=== PATIENT | male | born 1935 | race Caucasian/White ===

== ENCOUNTER 2016-10-25 21:51 | Inpatient (IN) | payer MEDICARE, OTHER ==
--- NOTE | ~2016-10-25 | DS ---
Unit #: [id number] #: [id number] Patient: KIM JORGE [id number] [address] [address] [id number] I MR#: [id number] NAME: KIM JORGE ROOM: 561 Age: 81 Sex: M Admission Date: 10/25/2016 : 1935 Discharge Date: 10/28/2016 Attending Physician: Farnaz Steinberg M.D. DISCHARGE SUMMARY PRIMARY CARE PROVIDER Unknown. PRINCIPAL DIAGNOSES 1. Acute on chronic kidney disease, stage 4 with discharge creatinine of 2.5. 2. Benign prostatic hypertrophy with urinary retention. 3. Hypokalemia. 4. Systemic inflammatory response syndrome, now resolved. 5. Dementia, likely vascular. 6. Hypertension. 7. Diabetes mellitus type 2, controlled. 8. Anemia of chronic kidney disease. 9. Acute delirium, resolved. 10. Metabolic acidosis secondary to chronic kidney disease. 11. Gout. 12. Hyperlipidemia. 13. History of renal cell carcinoma. CONSULTANTS 1. Dr. Potts of Nephrology. 2. Dr. Peterson of Urology. PROCEDURES 1. Chest x-ray on 10/25/2016 with prominent and tortuous thoracic aorta. 2. CT of the head without contrast on 10/25/2016 with no acute findings, generalized cerebral and cerebellar cortical atrophy and mild chronic ischemic changes in the deep white matter noted. 3. Chest x-ray on 10/26/2016 again without any acute findings. CLINICAL HISTORY AND HOSPITAL COURSE Mr. Jorge is an 81-year-old male, who presents to the emergency department with increasing confusion. Please refer to H and P for further details. Upon presentation, creatinine was elevated at 4.2. The patient was seen in the ER on the and found to have a creatinine of 4.6, he also had urinary retention. Gonzalez catheter was placed and he was sent back to . He presents back with increasing confusion, at which time, creatinine was 4.2, and Gonzalez catheter remained in place. The patient was subsequently admitted. Nephrology was consulted. The patient was placed on IV fluids and creatinine has now decreased to 2.5, which is very near to the patient's baseline. He had an associated metabolic acidosis and he has been placed Unit #: [id number] #: [id number] Patient: KIM JORGE on sodium bicarbonate tablets. His chronic renal dysfunction secondary to underlying hypertension in combination with his bladder outlet obstruction which has been treated with a Gonzalez catheter. He will continue on medications as noted below and will follow up with Dr. Potts as an outpatient. Dr. Peterson was consulted given urinary retention. The patient will continue on his Flomax in addition to Proscar and will need chronic indwelling Gonzalez catheter which has been discussed with the patient. This led to be changed monthly. The patient's other chronic condition remained stable. He did have some mild hypokalemia and will continue on his home potassium. I tried to contact patient's family and/or friends due to his dementia, but I am unable to do so. Plan is to discharge back to with physical therapy via home health when family can be reached. DISCHARGE CONDITION Stable. DISCHARGE STATUS Return to previous living situation with home health. DISCHARGE MEDICATIONS Sodium bicarbonate 650 mg b.i.d., Flomax 0.4 mg b.i.d., Coreg 12.5 mg b.i.d., Norvasc 10 mg daily, bisacodyl 5 mg daily p.r.n. for constipation, Lipitor 10 mg at bedtime, Catapres 0.1 mg b.i.d., hydralazine increased to 75 mg p.o. t.i.d., allopurinol 100 mg daily, Proscar 5 mg daily, potassium chloride 20 mEq p.o. b.i.d. DISCHARGE INSTRUCTIONS The patient was instructed to maintain Gonzalez catheter at all time, that will need to be changed monthly. He can increase activity as tolerated occupational therapy. He will continue with a heart-healthy diet. Monitoring his carbohydrate intake. FOLLOWUP The patient will follow up with Dr. Peterson in 1 month and he will follow up with Dr. Potts in 4 to 6 weeks. He will likely benefit from outpatient Procrit at some point, given his degree of renal dysfunction. Time spent discharge 34 minutes. Dictated by... Farnaz Steinberg M.D. GUERA/tito TD: 10/29/2016 01:52 JOB #: [id number] Unit #: [id number] #: [id number] Patient: KIM JORGE DISCHARGE SUMMARY Page 1 of 1 X Farnaz Steinberg MD X DISCHARGE SUMMARY
--- NOTE | ~2016-10-25 | CR72 ---
[facility] A Service of [facility] & [facility] RADIOLOGY TEXT RESULTS PATIENT: KIM OLIVEIRA LOCATION: CEDOF [address]3941-33 : 35 UNIT #: [id number] AGE: [address]: Benjamin Christina MD SEX: M ORDER DR: [id number] [facility] [address] [facility]. [place], [place] [address] [id number] I MR#: [id number] Acc #: [id number] NAME: KIM OLIVEIRA : 1935 SEX: M STUDY DATE/TIME: 10/25/2016 20:26 UNIT: CEDOF ROOM: 51696 STUDY DESCRIPTION: CR Chest Single View Portable Attending Physician: Benjamin Christina M.D. Ordering Physician: Sheryl Leon M.D. MEDICAL IMAGING REPORT This report is preliminary unless electronic signature is present EXAM Portable chest HISTORY Shortness of air, cough and congestion for 4 days. FINDINGS The cardiac size and pulmonary vascularity are normal. Mildly prominent and tortuous descending thoracic aorta. No airspace infiltrates or effusions. Calcified left hilar nodes and calcified granuloma in the left midlung. Remainder of the chest is negative. IMPRESSION No acute findings. No active disease. Mildly prominent and tortuous thoracic aorta similar to 04/25/2016. Dictated by... Randolph Andrews M.D. THIS IS AN ELECTRONICALLY VERIFIED REPORT Randolph Andrews M.D. at 10/27/2016 1:59 PM LAYA/carmen TD: 10/26/2016 10:36 JOB #: [id number] MEDICAL IMAGING REPORT Page 1 of 1 COPY
--- NOTE | ~2016-10-25 | CO ---
Unit #: [id number] #: [id number] Patient: KIM JORGE [id number] [place], [place] [address] [id number] I MR#: [id number] NAME: KIM JORGE ROOM: 561 Age: 81 Sex: M Admission Date: 10/25/2016 : 1935 Attending Physician: Farnaz Steinberg M.D. Primary Care Physician: No Primary Care Physician CONSULTATION REPORT REASON FOR CONSULTATION Altered mental status. HISTORY OF PRESENT ILLNESS Mr. Kim Jorge is an 81-year-old male admitted on 10/25/2016 with a change in mental status and disorientation. Patient was seen on 10/28/2016 in room 561 at [facility]. The patient reported that he is feeling better. Patient had a UTI at that time and his potassium was 2.6, BUN 88, creatinine 4.2 at the time of admission. The patient reported that he is feeling much better, alert, and oriented to time, place, and person. The patient reported that he has a good support system. Denied any suicidal or homicidal ideation. Denied any psychotic symptoms. PAST PSYCHIATRIC HISTORY Unremarkable for any history of any psychiatric illness. MEDICAL HISTORY Medical history is remarkable for history of chronic kidney disease, hypertension, diabetes, history of dyslipidemia, history of dyslipidemia, history of gout, benign prostatic hypertrophy, urinary retention, Gonzalez catheter placed on 10/22/2016, history of renal cell carcinoma with a previous right nephrectomy in 1992, history of rhabdomyolysis in past. MEDICATION HISTORY Patient is on allopurinol 100 mg daily; Norvasc 10 mg daily; atorvastatin 10 mg daily; bisacodyl 5 mg daily; Coreg 12.5 mg b.i.d.; clonidine 0.5 mg b.i.d.; hydralazine 10 mg 3 times a day; potassium chloride 20 mEq b.i.d.; Flomax 0.4 mg b.i.d. and Toradol 50 mg q.6 hours. REVIEW OF SYSTEMS Complete review of system is unremarkable. MENTAL STATUS EXAMINATION General appearance: Patient dressed casually, lying comfortably in bed. Attention span and concentration fair. Speech regular rate, coherent. Oriented in time, place and person. Mood and affect were sad, dysphoric, anxious. Patient was somewhat upset about not having a bowel movement. Thought process coherent and goal directed. Thought content - the patient denied any thoughts of harming self or others or any psychotic symptoms. Recent and remote memory fair. Language - able to name object, repeat phrases. Fund of knowledge fair. Insight and judgment fair to slightly impaired. Unit #: [id number] #: [id number] Patient: KIM JORGE DIAGNOSIS PSYCHIATRIC: Delirium, resolved - F05. SECONDARY DIAGNOSIS: Deferred. MEDICAL DIAGNOSIS: Please refer to H and P. STRESSORS: Psychosocial stressors. ASSESSMENT/PLAN 1. Supportive psychotherapy and psychoeducation provided to patient. 2. Educated about benefits and side effects of medication, and course and prognosis of illness. 3. Advised to continue with treatment. We will continue to monitor if needed, to consider medication. Please feel free to call if any questions. Telephone number [phone]. Dictated by... Reji Randall M.D. ANANDA/rakesh TD: 10/30/2016 05:52 JOB #: [id number] CONSULTATION REPORT Page 1 of 1 X Reji Randall MD X CONSULTATION REPORT
--- NOTE | ~2016-10-25 | CT71 ---
[facility] A Service of [facility] & [facility] RADIOLOGY TEXT RESULTS PATIENT: KIM OLIVEIRA LOCATION: CEDOF [address]-96 : 35 UNIT #: [id number] AGE: [address]: Benjamin Christina MD SEX: M ORDER DR: [id number] [facility] [address] [facility]. [place], [place] [address] [id number] I MR#: [id number] Acc #: [id number] NAME: KIM OLIVEIRA : 1935 SEX: M STUDY DATE/TIME: 10/25/2016 21:13 UNIT: CEDOF ROOM: 39063 STUDY DESCRIPTION: CT Head Wo Contrast Attending Physician: Benjamin Christina M.D. Ordering Physician: Sheryl Leon M.D. Primary Care Physician: No Primary Care Physician MEDICAL IMAGING REPORT This report is preliminary unless electronic signature is present EXAM CT brain without contrast HISTORY Disoriented. Confusion for [address] exam was performed with one or more of the following radiation dose reduction techniques: automatic exposure control, adjustment of mA and/or kV according to patient size, and iterative reconstruction. FINDINGS CT brain without contrast demonstrates no intracranial hemorrhage, mass or edema. No midline shift or ventricular dilatation or extraaxial fluid collection. Mild generalized cerebral and cerebellar cortical atrophy. IMPRESSION 1. No acute findings are identified. 2. Mild generalized cerebral and cerebellar cortical atrophy and mild chronic ischemic changes in the deep white matter bilaterally. Dictated by... Randolph Andrews M.D. THIS IS AN ELECTRONICALLY VERIFIED REPORT Randolph Andrews M.D. at 10/26/2016 1:32 PM DFL/sebastian TD: 10/26/2016 11:28 JOB #: [id number] MEDICAL IMAGING REPORT [facility] A Service of [facility] & [facility] RADIOLOGY TEXT RESULTS PATIENT: KIM OLIVEIRA LOCATION: CEDOF [address]-67 : 35 UNIT #: [id number] AGE: [address]: Benjamin Christina MD SEX: M ORDER DR: Page 1 of 1 COPY
--- NOTE | ~2016-10-25 | CO ---
Unit #: [id number] #: [id number] Patient: KIM OLIVEIRA [id number] [address] [address] [id number] I MR#: [id number] NAME: KIM OLIVEIRA ROOM: 561 Age: 81 Sex: M Admission Date: 10/25/2016 : 1935 Attending Physician: Farnaz Steinberg M.D. Primary Care Physician: Primary Care Physician No Consultation Date: 10/26/2016 CONSULTATION REPORT INDICATION FOR CONSULT Traumatic Gonzalez removal, BPH, hematuria. HISTORY OF PRESENT ILLNESS This is an 81-year-old gentleman who is in a mcc, who comes in after pulling out his Gonzalez catheter with mental status changes, confusion, possible urinary tract infection. Urology was consulted secondary to his traumatic Gonzalez catheter removal. The patient has quite a bit of delirium, unable to get any significant review of systems as far as I am aware he has not seen a urologist in our practice. I was able to get an 18-Peruvian Gonzalez catheter back into the patient's urethra and into his bladder and clear urine was obtained. REVIEW OF SYSTEMS The patient's review of systems is unobtainable. PAST MEDICAL HISTORY Acute on chronic renal insufficiency. The patient's creatinine is 3.3. BPH. MEDICATIONS Please see MAR. PHYSICAL EXAMINATION GENERAL: The patient is awake, but confused, in no distress. HEENT: Normocephalic, atraumatic. HEART: Regular. LUNGS: Clear. ABDOMEN: Soft, nondistended. There is no CVA tenderness. : An 18-Peruvian Gonzalez catheter was easily placed in the patient's urethra and into his bladder without any difficulty. DIAGNOSTIC STUDIES LABORATORY RESULTS: The patient's creatinine is 3.3. His white count is 12.9, his hemoglobin 11.5. IMPRESSION Traumatic catheter removal, questionable urinary tract infection. PLAN We will keep Gonzalez in place for now. Continue antibiotic. We will wait for his urine culture return. Unit #: [id number] #: [id number] Patient: KIM OLIVEIRA Dictated by.Ulices Delaney/tito TD: 10/28/2016 12:48 JOB #: [id number] CONSULTATION REPORT Page 1 of 1 X Jules Rolle MD CONSULTATION REPORT
--- NOTE | ~2016-10-25 | EKG ---
PATIENT: KIM OLIVEIRA UNIT #: [id number] Ventricular Rate: 88 BPM Atrial Rate: 93 BPM QRS Duration: 82 ms Q-T Interval: 414 ms QTC Calculation(Bezet): 500 ms Calculated R [place]: -63 degrees Calculated T [place]: 17 degrees Diagnosis Line: Normal sinus rhythm Premature atrial complexes Diagnosis Line: Left axis deviation Diagnosis Line: Inferior infarct , age undetermined Diagnosis Line: Abnormal ECG Diagnosis Line: No previous ECGs available Diagnosis Line: Confirmed by LIZETTE CASTRO MD ([id number]) on 10/29/2016 Diagnosis Line: 10:31:31 PM INTERPRETING MD: MATTHEW LOMBARDI
--- NOTE | ~2016-10-25 | CR63 ---
[facility] A Service of [facility] & [facility] RADIOLOGY TEXT RESULTS PATIENT: KIM OLIVEIRA LOCATION: CEDOF [address]-90 : 35 UNIT #: [id number] AGE: [address]: Benjamin Christina MD SEX: M ORDER DR: [id number] [facility] [address] [facility]. [place], [place] [address] [id number] I MR#: [id number] #: [id number] NAME: KIM OLIVEIRA : 1935 SEX: M STUDY DATE/TIME: 10/26/2016 10:52 UNIT: CEDOF ROOM: 21671 STUDY DESCRIPTION: CR Chest 2 View Attending Physician: Benjamin Christina M.D. Ordering Physician: Roberto Potts M.D. Primary Care Physician: No Primary Care Physician MEDICAL IMAGING REPORT This report is preliminary unless electronic signature is present EXAM 2-view chest INDICATIONS Fever, sepsis, and urinary tract infection for 2 days. FINDINGS PA and lateral views of the chest compared to 10/25/2016. Heart is mildly enlarged. The thoracic aorta is tortuous. There is a benign granuloma in the left mid lung. No new pulmonary opacities. No pleural effusion. IMPRESSION 1. No acute cardiopulmonary findings. 2. Mild cardiomegaly and tortuous thoracic aorta are unchanged. Dictated by... Hamlet Van M.D. THIS IS AN ELECTRONICALLY VERIFIED REPORT Hamlet Van M.D. at 10/27/2016 10:43 AM RPJules/arcadio TD: 10/27/2016 02:31 JOB #: [id number] MEDICAL IMAGING REPORT Page 1 of 1 COPY
--- NOTE | ~2016-10-25 | CO ---
Unit #: [id number] #: [id number] Patient: KIM OLIVEIRA [id number] [address] [address] [id number] I MR#: [id number] NAME: KIM OLIVEIAR ROOM: 561 Age: 81 Sex: M Admission Date: 10/25/2016 : 1935 Attending Physician: Farnaz Steinberg M.D. Primary Care Physician: Ketty Primary Care Physician Consultation Date: 10/28/2016 CONSULTATION REPORT REASON FOR CONSULTATION Elevated renal indices in context of urinary retention. 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 He was discharged with a Gonzalez catheter, which he pulled out back where he lives in the [place]. He was readmitted again with a creatinine of 4.2. Urinary retention is suspected. He is once again improved with Gonzalez catheter in place. He denies any voiding difficulty, but admits to occasional urge incontinence and takes Flomax. He sees Dr. Paz for his chronic renal insufficiency, which is thought likely to progress to dialysis. He has a solitary left kidney, having had nephrectomy for cancer in 1992 on the right. He denies any history of gross hematuria, urinary infection or stone disease. PAST MEDICAL HISTORY 1. BPH. 2. Urinary retention. 3. Hypertension. 4. Chronic kidney disease. 5. Gout. 6. Diabetes. 7. Dyslipidemia. 8. History of rhabdomyolysis in the past. PAST SURGICAL HISTORY 1. Right nephrectomy. 2. Bilateral cataracts. 3. Tonsillectomy. 4. Adenoidectomy. 5. Benign tumor right arm. 6. Right total knee arthroplasty. SOCIAL HISTORY Nonsmoker. Canning Machine Operator. FAMILY HISTORY Unit #: [id number] #: [id number] Patient: KIM OLIVEIRA Negative for prostate cancer according to the patient. ALLERGIES Latex. ADMISSION MEDICATIONS 1. Allopurinol. 2. Norvasc. 3. Atorvastatin. 4. Bisacodyl. 5. Coreg. 6. Clonidine. 7. Hydralazine. 8. Potassium. 9. Flomax. 10. Toradol. REVIEW OF SYSTEMS Not reliable. PHYSICAL EXAMINATION GENERAL: The patient is pleasant and alert. Responsive but not fully oriented. VITALS: Afebrile with stable vital signs. Temperature 98.2, pulse 77, blood pressure 150/80, respiratory rate 20. Height is 5'10" and weight is 156 pounds. HEENT: Unremarkable. ABDOMEN: Normal habitus. Soft and nontender. No anterior scars. Thallus normal circumcised. Gonzalez catheter in place, unfortunately on some traction, not well secured. Tests and epididymis normal descended. DIGITAL: Normal anus and sphincter tone. No stool in the vault. Prostate feels moderately enlarged, at least 60 grams and with minimal benign feeling irregularities. No fluctuance, nodularity or tenderness. DIAGNOSTIC STUDIES IMAGING: X-rays no upper tract images. LABORATORY: BUN 50, creatinine 2.5, which may be baseline. Urinalysis 100 to 200 red cells, 2 to 5 white cells, no nitrates, no bacteria. ASSESSMENT The patient has large volume BPH and takes Flomax chronically. Full assessment of it is difficult, but very likely indicates recurrent acute renal failure due to urinary retention from the BPH. The patient is probably best managed with a chronic indwelling Gonzalez catheter for the foreseeable future, but as this may be problematic would optimize him for possible PUR should this need to be attempted. It also would rule out prostate cancer, although no evidence of this on exam. PLAN Will check PSA, start him on finasteride and keep Gonzalez secure off traction at all times. Will await disposition for social service before committing to followup. Thank you, Benjamin, for the consultation. Unit #: [id number] #: [id number] Patient: KIM OLIVEIRA Dictated by... Ezequiel Peterson M.D. YURIDIA/alyce TD: 10/28/2016 10:46 JOB #: [id number] CONSULTATION REPORT Page 1 of 1 X Ezequiel Peterson MD X CONSULTATION REPORT
--- NOTE | ~2016-10-25 | HP ---
Unit #: [id number] #: [id number] Patient: KIM OLIVEIRA [id number] [address] [place], [place] [address] [id number] I MR#: [id number] NAME: KIM OLIVEIRA ROOM: 18725 Age: 81 Sex: M Admission Date: 10/25/2016 : 1935 Attending Physician: Benjamin Christina M.D. Primary Care Physician: No Primary Care Physician HISTORY AND PHYSICAL CHIEF COMPLAINT Change in mental status, disorientation. DISCUSSION This is an 81-year-old gentleman who has a history of chronic kidney disease, hypertension, diabetes in the past - on diet now, dyslipidemia, history of gout, history of renal cell carcinoma with previous right nephrectomy, benign prostatic hypertrophy, urinary retention. He lives at (1) Home where he resides. He actually was brought here to the emergency room 2 days ago, 10/22. At that time his workup showed BUN 119. Creatinine was 5.6. He was found to have urinary retention, and he was placed on a Gonzalez catheter and eventually he was sent back to (1) Home. He was brought today to the ER with symptoms of change in mental status, confusion, possible UTI. The patient has been disoriented. On workup he was found to have potassium of 2.6, BUN 88, creatinine 4.2, which is improved from last time. Possibly he has urinary retention, which is improving, but symptoms worse with increased lactic acid level of 2.4. The patient is being admitted for possible sepsis, UTI, acute kidney injury and hypokalemia. The patient is at this time a very poor historian. Most of information is obtained through reviewing old chart and talking with his friend at the bedside who lives with him at (1) Home. PAST MEDICAL HISTORY 1. History of chronic kidney disease. 2. Hypertension. 3. Diabetes, on diet. 4. History of dyslipidemia. 5. History of gout. 6. Benign prostatic hypertrophy. 7. Urinary retention. Apparently he was placed on Gonzalez catheter on 10/22/16. 8. History of renal cell carcinoma with previous right nephrectomy in 1992. 9. History of rhabdomyolysis in the past. PAST SURGICAL HISTORY 1. Right nephrectomy in 1992. 2. History of cataract surgery bilaterally. 3. History of excision of benign tumor from right arm. 4. History of tonsillectomy. 5. Adenoidectomy. 6. History of total knee arthroplasty. Unit #: [id number] #: [id number] Patient: KIM OLIVEIRA SOCIAL HISTORY He does not smoke. Does not drink alcohol. Lives at (1) Home. FAMILY HISTORY History of hypertension, diabetes, laryngeal cancer in the family. ALLERGIES Latex. CURRENT MEDICATIONS 1. Allopurinol 100 mg daily. 2. Norvasc 10 mg daily. 3. Atorvastatin 10 mg daily. 4. Bisacodyl 5 mg daily. 5. Coreg 12.5 b.i.d. 6. Clonidine 0.1 mg b.i.d. 7. Hydralazine 10 mg t.i.d. 8. Potassium chloride 20 mEq b.i.d. 9. Flomax 0.4 mg b.i.d. 10. Toradol 50 mg q.6 hours p.r.n. REVIEW OF SYSTEMS All review of systems negative except as in history of present illness. PHYSICAL EXAMINATION GENERAL: Elderly man lying in bed comfortably. He has chills and shivering. He is alert, awake, oriented to time only and situation; otherwise, he is disoriented. CURRENT VITALS: Temperature is 98.2, heart rate 108, respirations 16, blood pressure 136/103, oxygen 100% on room air. HEENT: Head is atraumatic. Pupils are equal and reactive to light and accommodation. Extraocular muscles are intact. Oropharynx is normal. NECK: Neck is supple. No JVD. No carotid bruits. LUNGS: Lungs are clear to auscultation. HEART: S1, S2. Regular rate and rhythm. No murmur. No gallop. ABDOMEN: Abdomen is soft, nontender, nondistended. Bowel sounds are positive. EXTREMITIES: Inspection is normal. No cyanosis. No clubbing. No edema. NEUROLOGIC: Unable to do neuro exam at this time secondary to patient cooperation. DIAGNOSTIC STUDIES LABORATORY WORKUP: His blood gases, ABG, shows pH of 7.67, CO2 18, O2 101. White count is 14, hemoglobin 11, hematocrit 35, platelets 224. His INR is 1. Lactic acid level 2.4. Sodium 140, potassium 2.6, chloride 103, glucose 170, BUN 88, creatinine 4.2. LFTs within normal limits. Magnesium level is 2. Troponin less than 0.05, less than 0.05. UA shows yellow appearance, nitrite negative, leukocyte esterase trace. ASSESSMENT AND PLAN 1. Acute on chronic kidney injury. Place on IV fluids. 2. Hypokalemia. Replace. 3. Possible sepsis. Start the patient on IV Rocephin. Monitor. Flu is pending. 4. Urinary retention status post recent Gonzalez catheter. Patient was brought here on 10/22/16. Found to have urinary retention. Gonzalez was placed. At that time BUN was 19, creatinine 5.6, which is basically improving. Unit #: [id number] #: [id number] Patient: KIM OLIVEIRA 5. Hypertension. 6. Diabetes. Currently he is on diet. 7. History of dyslipidemia. 8. Gout. 9. Benign prostatic hypertrophy. 10. History of renal cancer with previous right nephrectomy in 1992. 11. DVT prophylaxis. Will place the patient on SCDs. Dictated by Ulices Bush/vibha TD: 10/26/2016 08:26 JOB #: [id number] HISTORY AND PHYSICAL Page 1 of 1 X X HISTORY AND PHYSICAL
--- NOTE | ~2016-10-25 | CO ---
Unit #: [id number] #: [id number] Patient: KIM OLIVEIRA [id number] [address] [place], [place] [address] [id number] MR#: [id number] NAME: KIM OLIVEIRA ROOM: 561 Age: 81 Sex: M Admission Date: 10/25/2016 : 1935 Attending Physician: Farnaz Steinberg M.D. Consultation Date: 10/26/2016 CONSULTATION REPORT REASON FOR CONSULTATION Acute on chronic renal failure. Thank you very much for this consultation. HISTORY OF PRESENT ILLNESS The patient is an 81-year-old white male with history of CKD stage 3 to 4, who follows with my partner, Dr. Paz. He was just seen by Dr. Paz in the office last week and his creatinine was 3.7, his baseline has been in the mid upper 3s. He has a history of bladder outlet obstruction and has a Gonzalez catheter in place; however, he pulled that out in the emergency room overnight. His creatinine on admission was 4.2, after he presented to the ER with confusion and altered mental status and he is unable to provide any reliable history. He is hypertensive with low-grade fever in the emergency room. His white count was noted to be elevated at 14.4. His urinalysis showed positive blood, but no significant pyuria. He otherwise is stable; however, again he is confused and able to cooperate with exam or history taking. His Gonzalez catheter appeared to have been kinked prior to him pulling it out as he did have significant amount of urine retained in the bladder. After unkinking the Gonzalez catheter bag, it did drain clear yellow urine; however, at that point, the patient pulled out the catheter. PAST MEDICAL HISTORY Significant for chronic kidney disease, hypertension, diabetes mellitus, gout, hyperlipidemia, bladder outlet obstruction. HOME MEDICATIONS Zyloprim 100 mg daily, Norvasc 10 mg daily, Atorvastatin 10 mg daily, bisacodyl 5 mg daily, carvedilol 12.5 mg b.i.d., Catapres 0.1 mg b.i.d., Apresoline 10 mg t.i.d., potassium chloride 20 mEq b.i.d., Flomax 0.4 mg b.i.d., tramadol 50 mg every 6 hours as needed for pain. ALLERGIES Latex. FAMILY HISTORY Noncontributory. SOCIAL HISTORY Apparently, he lives by himself. PHYSICAL EXAMINATION VITAL SIGNS: Blood pressure 160s to 190s over 90s to 100s, heart rate 60s Unit #: [id number] #: [id number] Patient: TEE,KIM to 90s, respirations 20 to 23, T-max 100.6 Fahrenheit. GENERAL: He is awake, but confused. HEENT: Head is normocephalic and atraumatic. EENT; pupils are equal, round, to light. Oropharynx is clear. NECK: Supple. No JVD. LUNGS: Clear to auscultation bilaterally. No wheezes, rhonchi, or crackles. HEART: Regular rate and rhythm. No murmurs, gallops, or rubs. ABDOMEN: Soft with positive bowel sounds, nontender. EXTREMITIES: Lower extremities, no edema. LABORATORY DATA White count 14.4, hemoglobin 11.9, and platelets 224. Sodium 142, potassium 2.7, chloride 110, bicarb 20, BUN 75, creatinine 3.3, glucose 129, calcium 9.2, magnesium 2.0. Urinalysis showed trace leukocyte esterase with positive blood, but no pyuria. IMPRESSION 1. Acute kidney injury due to prerenal azotemia and obstructive uropathy. Creatinine is at baseline this morning. 2. Chronic kidney disease, stage 3 to 4 with baseline creatinine in the mid 3s. 3. Bladder outlet obstruction, status post recent Gonzalez placement, this was pulled out by the patient in the emergency room and has not been replaced. He did have a significant amount of urine retained in his bladder when he presented as the Gonzalez had been kinked initially. 4. Hypokalemia. 5. Metabolic acidosis. 6. Hypertension. 7. Diabetes. 8. Anemia of chronic kidney disease. 9. Altered mental status. PLAN Continue IV fluids. Titrate blood pressure medications. Replace Gonzalez after seen by Urology if needed. Continue antibiotics per primary. We will follow cultures, replace electrolytes and follow the patient's clinical course closely. Dictated by... Roberto Potts M.D. DANIELLE/tito TD: 10/28/2016 05:23 JOB #: [id number] CONSULTATION REPORT Page 1 of 1 X Roberto Potts MD CONSULTATION REPORT
[2016-10-25 20:23] LABS: ARTERIAL BLD GAS O2 SATURATION 97.4 % (90.0-100.0); ARTERIAL BLOOD GAS CARBOXY HB 0.5 %sat (0.0-9.0); ARTERIAL BLOOD GAS HCO3 21.8 mmol/L; ARTERIAL BLOOD GAS MET HB 0.9 %sat (0.0-2.0)
[2016-10-25 20:25] LABS: ARTERIAL BLOOD GAS ALLEN TEST NORMAL; ARTERIAL BLOOD GAS ART SITE RIGHT RADIAL; ARTERIAL BLOOD GAS PCO2 18.8 mmHg (35.0-45.0); ARTERIAL BLOOD GAS pH 7.674 (7.350-7.450); ARTERIAL DRAW? YES
[2016-10-25 20:49] LABS: BASOPHIL# 0.2 X10e3 (0-0.3); BASOPHIL% 1.2 % (0-2.5); EOSINOPHIL# 0.3 X10e3 (0-0.7); EOSINOPHIL% 1.9 % (0.0-7.0); HEMATOCRIT 35.2 % (38.0-50.0); HEMOGLOBIN 11.9 gm/dL (13.0-16.0); LYMPHOCYTE# 3.5 X10e3 (1.0-3.5); LYMPHOCYTE% 24.3 % (17.0-45.0); MEAN CELL VOLUME 92.8 FL (83-96); MEAN CORPUSCULAR HEMOGLOBIN 31.3 PG (28-34); MEAN CORPUSCULAR HGB CONC 33.7 g/dL (30-36); MEAN PLATELET VOLUME 7.2 FL (6.5-11.5); MONOCYTE# 1.3 X10e3 (0-1.0); MONOCYTE% 9.3 % (3.0-12.0); NEUTROPHIL# 9.1 X10e3 (1.5-7.1); NEUTROPHIL% 63.3 % (40-75); PLATELET COUNT 224 X10e3 (140-420); RED CELL DISTRIBUTION WIDTH 13.6 % (11.0-15.5); WHITE BLOOD COUNT 14.4 X10e3 (4.0-10.5)
[2016-10-25 20:50] LABS: DIFF IND NO
[2016-10-25 21:10] LABS: PARTIAL THROMBOPLASTIN TIME 25.1 SECONDS (23.5-31.3); PROTHROMBIN TIME (PATIENT) 10.8 SECONDS (9.6-11.5)
[2016-10-25 21:14] LABS: ALBUMIN SERUM 4.2 g/dL (3.5-5.0); BILIRUBIN, DIRECT 0.2 mg/dL (0.0-0.2); BILIRUBIN,INDIRECT 0.9 mg/dL (0.0-0.9); BILIRUBIN,TOTAL 1.1 mg/dL (0.2-2.0); BUN/CREATININE RATIO 20.95; CALCIUM SERUM 10.3 mg/dL (8.4-10.2); CREATININE SERUM 4.2 mg/dL (0.6-1.4); GLOM FILT RATE Estimated 12.4 mL/min (>60); PROTEIN TOTAL SERUM 7.8 g/dL (6.0-8.3)
[2016-10-25 21:15] LABS: POTASSIUM 2.6 mmol/L (3.5-5.1)
[2016-10-25 22:19] LABS: POC - CKMB 2.1 ng/mL (0.0-7.9); POC - TROPONIN <0.05 ng/mL (<=0.05)
[2016-10-25 22:20] LABS: POC - CKMB 1.9 ng/mL (0.0-7.9); POC - TROPONIN <0.05 ng/mL (<=0.05)
[2016-10-25 22:32] LABS: URINE SOURCE CLEAN CATCH
[2016-10-25 22:38] LABS: URINE APPEARANCE CLEAR; URINE BILIRUBIN NEG (NEG); URINE BLOOD 2+ (NEG); URINE COLOR YELLOW; URINE GLUCOSE NEG (NEG); URINE KETONE NEG (NEG); URINE LEUKOCYTE ESTERASE TRACE (NEG); URINE NITRATE NEG (NEG); URINE PROTEIN 3+ (NEG); URINE SPECIFIC GRAVITY 1.015 (1.003-1.035); URINE UROBILINOGEN 0.2 MG/DL (NEG)
[2016-10-25 22:40] LABS: CULTURE INDICATED? NO; U HYALINE CASTS AUWI 0-2 /[LPF]; URBCS1 AUWI 100-200 /[HPF] (0-2); URINE BACTERIA AUWI NEG (NEGATIVE); URINE SQUAMOUS EPITHELIAL CELL NONE SEEN /[HPF]
[2016-10-25] MEDS ORDERED: NORVASC10 MG PO (23:07)
[2016-10-25] MEDS ORDERED: ZYLOPRIM100 MG PO (23:07)
[2016-10-25] MEDS ORDERED: ATORVASTATIN CA10 MG PO (23:08)
[2016-10-25] MEDS ORDERED: BISACODYL EC5 M1 PO (23:08)
[2016-10-25] MEDS ORDERED: CARVEDILOL12.5 MG PO (23:08)
[2016-10-25] MEDS ORDERED: APRESOLINE10 M1 PO (23:09)
[2016-10-25] MEDS ORDERED: CATAPRES0.1 MG PO (23:09)
[2016-10-25] MEDS ORDERED: POTASSIUM20 MEQ/PKT PO (23:10)
[2016-10-25] MEDS ORDERED: TRAMADOL HCL50 M1 PO (23:10)
[2016-10-25] MEDS ORDERED: FLOMAX0.4 M1 PO (23:10)
[2016-10-25 23:57] LABS: ACETAMINOPHEN <10 ug/mL; ALCOHOL BLOOD <5 mg/dL ([0,]); SALICYLATE <4.0 mg/dL
[2016-10-26 04:07] LABS: INFLUENZA A NEG (NEG); INFLUENZA B NEG (NEG)
[2016-10-26 06:52] LABS: ARTERIAL BLD GAS O2 SATURATION 94.4 % (90.0-100.0); ARTERIAL BLOOD GAS CARBOXY HB 0.9 %sat (0.0-9.0); ARTERIAL BLOOD GAS HCO3 41.6 mmol/L; ARTERIAL BLOOD GAS MET HB 1.3 %sat (0.0-2.0); ARTERIAL BLOOD GAS PO2 81.1 mmHg (80.0-100); ARTERIAL BLOOD GAS pH 7.467 (7.350-7.450)
[2016-10-26 06:54] LABS: ARTERIAL BLOOD GAS ALLEN TEST NORMAL; ARTERIAL BLOOD GAS ART SITE RIGHT RADIAL; ARTERIAL BLOOD GAS DELIVERY VENTURI MASK; ARTERIAL BLOOD GAS PCO2 57.5 mmHg (35.0-45.0); ARTERIAL DRAW? YES
[2016-10-26 08:21] LABS: BUN/CREATININE RATIO 22.72; CALCIUM SERUM 9.2 mg/dL (8.4-10.2); CREATININE SERUM 3.3 mg/dL (0.6-1.4); GLOM FILT RATE Estimated 16.6 mL/min (>60)
[2016-10-26 08:33] LABS: POTASSIUM 2.7 mmol/L (3.5-5.1)
[2016-10-26 10:22] LABS: BASOPHIL# 0.2 X10e3 (0-0.3); BASOPHIL% 1.2 % (0-2.5); EOSINOPHIL# 0.1 X10e3 (0-0.7); EOSINOPHIL% 0.8 % (0.0-7.0); HEMATOCRIT 34.3 % (38.0-50.0); HEMOGLOBIN 11.5 gm/dL (13.0-16.0); LYMPHOCYTE# 2.8 X10e3 (1.0-3.5); LYMPHOCYTE% 21.5 % (17.0-45.0); MEAN CELL VOLUME 92.8 FL (83-96); MEAN CORPUSCULAR HEMOGLOBIN 31.2 PG (28-34); MEAN CORPUSCULAR HGB CONC 33.7 g/dL (30-36); MEAN PLATELET VOLUME 6.9 FL (6.5-11.5); MONOCYTE% 7.8 % (3.0-12.0); NEUTROPHIL# 8.9 X10e3 (1.5-7.1); NEUTROPHIL% 68.7 % (40-75); PLATELET COUNT 219 X10e3 (140-420); RED CELL DISTRIBUTION WIDTH 13.6 % (11.0-15.5); WHITE BLOOD COUNT 12.9 X10e3 (4.0-10.5)
[2016-10-26 10:24] LABS: DIFF IND NO
[2016-10-26 22:31] LABS: AMPHETAMINE NEG (NEG); BARBITURATES NEG (NEG); BENZODIAZEPINES NEG (NEG); COCAINE NEG (NEG); MARIJUANA NEG (NEG); OPIATES NEG (NEG); TRICYCLIC ANTIDEPRESSANTS NEG (NEG); U METHADONE NEG (NEG)
[2016-10-27 08:43] LABS: BASOPHIL# 0.1 X10e3 (0-0.3); BASOPHIL% 1.3 % (0-2.5); EOSINOPHIL# 0.7 X10e3 (0-0.7); HEMATOCRIT 30.1 % (38.0-50.0); HEMOGLOBIN 10.1 gm/dL (13.0-16.0); LYMPHOCYTE# 3.3 X10e3 (1.0-3.5); LYMPHOCYTE% 30.3 % (17.0-45.0); MEAN CELL VOLUME 94.8 FL (83-96); MEAN CORPUSCULAR HEMOGLOBIN 31.9 PG (28-34); MEAN CORPUSCULAR HGB CONC 33.6 g/dL (30-36); MEAN PLATELET VOLUME 7.2 FL (6.5-11.5); MONOCYTE# 0.9 X10e3 (0-1.0); MONOCYTE% 7.9 % (3.0-12.0); NEUTROPHIL# 5.9 X10e3 (1.5-7.1); NEUTROPHIL% 54.5 % (40-75); PLATELET COUNT 177 X10e3 (140-420); RED BLOOD COUNT 3.18 X10e (3.90-5.60); RED CELL DISTRIBUTION WIDTH 13.8 % (11.0-15.5); WHITE BLOOD COUNT 10.9 X10e3 (4.0-10.5)
[2016-10-27 08:44] LABS: DIFF IND NO
[2016-10-27 09:28] LABS: BUN/CREATININE RATIO 20.4; CALCIUM SERUM 8.7 mg/dL (8.4-10.2); CREATININE SERUM 2.5 mg/dL (0.6-1.4); GLOM FILT RATE Estimated 23.2 mL/min (>60); MAGNESIUM 1.7 mg/dL (1.6-3.0); PHOSPHOROUS 2.9 mg/dL (2.5-4.6); POTASSIUM 3.6 mmol/L (3.5-5.1)
[2016-10-28 06:36] LABS: BASOPHIL# 0.1 X10e3 (0-0.3); BASOPHIL% 1.1 % (0-2.5); EOSINOPHIL# 0.6 X10e3 (0-0.7); EOSINOPHIL% 6.1 % (0.0-7.0); HEMATOCRIT 27.9 % (38.0-50.0); HEMOGLOBIN 9.4 gm/dL (13.0-16.0); LYMPHOCYTE% 30.7 % (17.0-45.0); MEAN CELL VOLUME 94.3 FL (83-96); MEAN CORPUSCULAR HEMOGLOBIN 31.9 PG (28-34); MEAN CORPUSCULAR HGB CONC 33.8 g/dL (30-36); MEAN PLATELET VOLUME 7.6 FL (6.5-11.5); MONOCYTE# 0.8 X10e3 (0-1.0); MONOCYTE% 8.4 % (3.0-12.0); NEUTROPHIL# 5.2 X10e3 (1.5-7.1); NEUTROPHIL% 53.7 % (40-75); PLATELET COUNT 165 X10e3 (140-420); RED BLOOD COUNT 2.96 X10e (3.90-5.60); RED CELL DISTRIBUTION WIDTH 13.5 % (11.0-15.5); WHITE BLOOD COUNT 9.7 X10e3 (4.0-10.5)
[2016-10-28 06:40] LABS: DIFF IND NO
[2016-10-28 07:10] LABS: CALCIUM SERUM 8.4 mg/dL (8.4-10.2); CREATININE SERUM 2.5 mg/dL (0.6-1.4); GLOM FILT RATE Estimated 23.2 mL/min (>60); POTASSIUM 3.4 mmol/L (3.5-5.1)
[2016-10-28] MEDS ORDERED: PROSCAR5 MG PO (17:04)
[2016-10-28] MEDS ORDERED: APRESOLINE PO (17:07)
[2016-10-28] MEDS ORDERED: SODIUM BICARBO650 MG PO (17:09)
== END 2016-10-28 20:44 | disposition home health service (06) | DRG 871 ==
LOC: CED 21:51 → CEDOF 23:45 → C5B 10-27 18:48
PROVIDERS: Family Medicine; Internal Medicine; Internal Medicine Nephrology; Student in an Organized Health Care Education/Training Program
DX: A41.9 Sepsis, unspecified organism (principal); G92 Toxic encephalopathy; E87.2 Acidosis; N17.9 Acute kidney failure, unspecified; N18.4 Chronic kidney disease, stage 4 (severe); F05 Delirium due to known physiological condition; N39.0 Urinary tract infection, site not specified; I12.9 Hypertensive chronic kidney disease with stage 1 through stage 4 chronic kidney disease, or unspecified chronic kidney disease; E11.22 Type 2 diabetes mellitus with diabetic chronic kidney disease; N40.1 Benign prostatic hyperplasia with lower urinary tract symptoms; R33.8 Other retention of urine; E87.6 Hypokalemia; F01.50 Vascular dementia, unspecified severity, without behavioral disturbance, psychotic disturbance, mood disturbance, and anxiety; D63.1 Anemia in chronic kidney disease; M10.9 Gout, unspecified; E78.5 Hyperlipidemia, unspecified; N32.0 Bladder-neck obstruction; Z90.5 Acquired absence of kidney; R31.9 Hematuria, unspecified; Z91.040 Latex allergy status; Z96.659 Presence of unspecified artificial knee joint; Z85.528 Personal history of other malignant neoplasm of kidney; Z83.3 Family history of diabetes mellitus; Z80.2 Family history of malignant neoplasm of other respiratory and intrathoracic organs; Z82.49 Family history of ischemic heart disease and other diseases of the circulatory system
CPT/HCPCS: 36415; 36600; 51702; 70450; 71010; 71020; 80048; 80076; 80307; 81003; 82550; 82553; 82728; 82803; 83540; 83550; 83605; 83690; 83735; 84100; 84132; 84484; 85025; 85610; 85730; 87040; 87804; 93005; 96360; 97116; 97162; 97166; 97535; 99284; 99285; G0480; G8978-GP; G8979-GP; G8987-GO; G8988-GO; G8989-GO; J0696